=== PATIENT | female | born 1955 | race Hispanic/Latino ===

== ENCOUNTER 2017-08-16 19:26 | Emergency (ER) | payer MEDICARE, BC ==
[2017-08-16 19:31] VITALS: BP 151/85; PULSE 89; RESP 16; TEMP 98; O2SAT 98
--- NOTE | 2017-08-16 20:49 | ED PDOC ---
HPI: Psych/Substance Abuse Time Seen by Provider: 08/16/17 20:00 Chief Complaint (Nursing): Anxiety Chief Complaint (Provider): Depression History Per: Patient History/Exam Limitations: no limitations Onset/Duration Of Symptoms: Days Current Symptoms Are (Timing): Still Present Additional Complaint(s): 62 y/o female with a past medical history of hypertension who presents to the emergency department with a complaint of feeling depressed and sad since she had been off her medications x1 month. Reports she felt suicidal yesterday, , after he sons came over the house and started fighting. States she no longer feels suicidal. Denies homicidal ideation. Past Medical History Reviewed: Historical Data, Nursing Documentation, Vital Signs Vital Signs: Last Vital Signs Temp 98.0 F 08/16/17 19:28 Pulse 89 08/16/17 19:28 Resp 16 08/16/17 19:28 BP 151/85 H 08/16/17 19:28 Pulse Ox 98 08/16/17 19:28 - Medical History PMH: Anxiety, Depression, HTN Denies: Diabetes, Hepatitis, HIV, Chronic Kidney Disease, Seizures, Sexually Transmitted Disease - Surgical History Surgical History: Cholecystectomy - Family History Family History: States: Unknown Family Hx - Social History Current smoker - smoking cessation education provided: No Alcohol: None Drugs: Denies - Immunization History Hx Tetanus Toxoid Vaccination: No Hx Influenza Vaccination: No Hx Pneumococcal Vaccination: No - Home Medications Home Medications: Ambulatory Orders Medication Instructions Recorded Alprazolam [Xanax] 0.5 mg PO TID 02/27/16 Lisinopril [Zestril] 20 mg PO DAILY 02/27/16 Meloxicam [Mobic] 15 mg PO DAILY 02/27/16 Sertraline [Zoloft] 100 mg PO BID 02/27/16 Zolpidem [Ambien] 10 mg PO HS 02/27/16 traMADol [Ultram] 50 mg PO TID 02/27/16 - Allergies Allergies/Adverse Reactions: Allergies Allergy/AdvReac Type Severity Reaction Status Date / Time Penicillins Allergy RASH Verified 02/27/16 13:03 Review of Systems ROS Statement: Except As Marked, All Systems Reviewed And Found Negative (As per HPI, otherwise negative) Psych: Positive for: Depression, Suicidal ideation (Yesterday but had resolved since). Negative for: Other (Homicidal ideation) Physical Exam - Reviewed Nursing Documentation Reviewed: Yes Vital Signs Reviewed: Yes - Physical Exam Appears: Positive for: Non-toxic, No Acute Distress Head Exam: Positive for: ATRAUMATIC, NORMAL INSPECTION, NORMOCEPHALIC Skin: Positive for: Normal Color, Warm, Dry Cardiovascular/Chest: Positive for: Regular Rate, Rhythm. Negative for: Murmur Respiratory: Positive for: Normal Breath Sounds. Negative for: Accessory Muscle Use, Respiratory Distress Gastrointestinal/Abdominal: Positive for: Normal Exam, Soft. Negative for: Tenderness Neurologic/Psych: Positive for: Alert, Oriented (x3), Mood/Affect (Flat) - Laboratory Results Result Diagrams: 08/16/17 20:56 08/16/17 20:56 - ECG O2 Sat by Pulse Oximetry: 98 (RA) Pulse Ox Interpretation: Normal Medical Decision Making Medical Decision Making: Time: 2024 Initial Impression: Depression Initial Plan: --Acetaminophen --Alcohol Serum --BMP --Drug Screen, URINE --Salicylate --CBC w/ diff --Urinalysis --1:1 Observations for Suicide precaution --Reevaluation Time: 2055 --Urine Opiates: Positive (High) Time: 2219 --Crisis Evaluation As Ordered Time: 2254 --Patient is medically clear for psychiatric evaluation. 2311 Patient is deemed stable for discharge home as per Dr. Maldonado. Dx: depression Scribe~Attestation: Documented by Shayla Alberto, acting as a scribe for Esme lAvarenga MD. Provider Scribe~Attestation: All medical record entries made by the Scribe were at my direction and personally dictated by me. I have reviewed the chart and agree that the record accurately reflects my personal performance of the history, physical exam, medical decision making, and the department course for this patient. I have also personally directed, reviewed, and agree with the discharge instructions and disposition. Disposition - Clinical Impression Clinical Impression: Depression - Patient ED Disposition Is Patient to be Admitted: No Counseled Patient/Family Regarding: Diagnosis, Need For Followup - Disposition Disposition: Routine/Home Disposition Time: 23:00 Condition: IMPROVED Additional Instructions: follow up with your psychiatrist in 2 days return to the ED with any worsening or concerning symptoms Instructions: Depression (ED) Forms: [employer] (Maltese)
[2017-08-16 21:25] LABS: BASO % 0.6 % (0.0-2.0); EOS # 0.1 K/uL (0.0-0.7); EOS % 1.4 % (0.0-4.0); HEMATOCRIT 39.8 % (34.0-47.0); LYMPH # 1.9 K/uL (1.0-4.3); LYMPH % 39.3 % (20.0-40.0); MEAN CELL VOLUME 91.9 fl (81.0-99.0); MEAN CORPUSCULAR HEMOGLOBIN 29.3 pg (27.0-31.0); MEAN CORPUSCULAR HGB CONC 31.9 g/dL (33.0-37.0); MEAN PLATELET VOLUME 7.9 fl (7.2-11.7); MONO # 0.4 K/uL (0.0-0.8); MONO % 8.8 % (0.0-10.0); NEUT # 2.4 K/uL (1.8-7.0); NEUT % 49.9 % (50.0-75.0); NRBC % 0.2 % (0.0-0.0); WHITE BLOOD COUNT 4.9 K/uL (4.8-10.8)
[2017-08-16 21:31] LABS: ALCOHOL SERUM < 10 mg/dl (0-10); BLOOD UREA NITROGEN 19 mg/dl (7-17); CALCIUM 9.1 mg/dL (8.4-10.2); CARBON DIOXIDE 27 mmol/L (22-30); CHLORIDE 106 mmol/L (98-107); GFR AFRICAN-AMERICAN > 60; GLUCOSE,RANDOM 84 mg/dL (65-105); POTASSIUM 4.8 MMOL/L (3.6-5.0); SODIUM 140 mmol/l (132-148)
[2017-08-16 21:36] LABS: RBC URINE 3 /hpf (0-3); URINE BILIRUBIN NEGATIVE (NEGATIVE); URINE BLOOD NEGATIVE (NEGATIVE); URINE COLOR YELLOW (YELLOW); URINE GLUCOSE (UA) NEG (Normal); URINE KETONE NEGATIVE (NEGATIVE); URINE LEUKOCYTE ESTERASE SMALL Leu/uL (Negative); URINE PROTEIN 30 mg/dL (NEGATIVE); URINE UROBILINOGEN 0.2-1.0 mg/dL (0.2-1.0)
--- NOTE | 2017-08-17 09:51 | CARD ---
APPROVED REPORT EKG Measurement Heart [id number] <Conclusion> Normal sinus rhythm Normal ECG
== END 2017-08-16 23:35 | disposition home or self-care (01) ==
LOC: H.ER 19:26
DX: F32.9 Major depressive disorder, single episode, unspecified (principal); F41.9 Anxiety disorder, unspecified; I10 Essential (primary) hypertension; Z88.0 Allergy status to penicillin
CPT/HCPCS: 80048; 81003; 85025; 93005; 99282; G0480

== ENCOUNTER 2018-03-31 18:59 | Emergency (ER) | payer MEDICARE, BC ==
[2018-03-31] MEDS ORDERED: Lidocaine 1% Inj (20ml) IJ ONE (20:58)
--- NOTE | 2018-03-31 21:00 | ED PDOC ---
Upper Extremity Pain/Injury Time Seen by Provider: 03/31/18 20:45 Chief Complaint (Nursing): Upper Extremity Problem/Injury Chief Complaint (Provider): right arm pain/swelling History Per: Patient History/Exam Limitations: no limitations Onset/Duration Of Symptoms: Days (3) Current Symptoms Are (Timing): Still Present Additional Complaint(s): 62 y/o female presents for evaluation of pain/swelling to right forearm x 3 days. Patient states area looked like a small "pimple" when it started, has since grown in size and now redness surrounding it. Associated chills. Denies fever, nausea/vomiting, numbness/weakness right upper extremity, IVDA. Past Medical History Reviewed: Historical Data, Nursing Documentation, Vital Signs Vital Signs: Last Vital Signs Temp 99.7 F H 03/31/18 19:24 Pulse 82 03/31/18 19:24 Resp 16 03/31/18 19:24 BP 175/85 H 03/31/18 19:24 Pulse Ox 98 03/31/18 19:24 - Medical History PMH: Anxiety, Depression, HTN Denies: Diabetes, Hepatitis, HIV, Chronic Kidney Disease, Seizures, Sexually Transmitted Disease - Surgical History Surgical History: Cholecystectomy - Family History Family History: States: Unknown Family Hx - Living Arrangements Living Arrangements: With Family - Immunization History Hx Tetanus Toxoid Vaccination: No Hx Influenza Vaccination: No Hx Pneumococcal Vaccination: No - Home Medications Home Medications: Ambulatory Orders Medication Instructions Recorded Alprazolam [Xanax] 0.5 mg PO TID 02/27/16 Lisinopril [Zestril] 20 mg PO DAILY 02/27/16 Meloxicam [Mobic] 15 mg PO DAILY 02/27/16 Sertraline [Zoloft] 100 mg PO BID 02/27/16 Zolpidem [Ambien] 10 mg PO HS 02/27/16 traMADol [Ultram] 50 mg PO TID 02/27/16 Clindamycin [Cleocin] 300 mg PO QID #40 cap 03/31/18 Ibuprofen [Motrin Tab] 800 mg PO Q8 PRN #15 tab 03/31/18 - Allergies Allergies/Adverse Reactions: Allergies Allergy/AdvReac Type Severity Reaction Status Date / Time Penicillins Allergy RASH Verified 02/27/16 13:03 Review of Systems ROS Statement: Except As Marked, All Systems Reviewed And Found Negative Musculoskeletal: Positive for: Arm Pain Physical Exam - Reviewed Nursing Documentation Reviewed: Yes Vital Signs Reviewed: Yes - Physical Exam Appears: Positive for: Well, Non-toxic, No Acute Distress Head Exam: Positive for: ATRAUMATIC, NORMAL INSPECTION, NORMOCEPHALIC Skin: Positive for: Normal Color Cardiovascular/Chest: Positive for: Regular Rate, Rhythm Respiratory: Positive for: Normal Breath Sounds Pulses-Radial (L): 2+ Pulses-Radial (R): 2+ Extremity: Positive for: Normal ROM, Swelling (4cm fluctuant abscess to right dorsal forearm with moderate surrounding erythema. + drainage. ) Neurologic/Psych: Positive for: Alert, Oriented (x3). Negative for: Motor/ Sensory Deficits - Laboratory Results Result Diagrams: 03/31/18 21:43 03/31/18 21:43 - ECG O2 Sat by Pulse Oximetry: 98 - Progress ED Course And Treament: labs, wound culture, IV morphine, IV clindamycin Verbal consent given by patient for I&D procedure Area prepped with betadine, anesthetized with 1% lido with epi Incision made using #11 blade with + prurulent drainage. Area packed, telfa applied, cling applied Patient educated on findings, discharged with rx Clindamycin, Ibuprofen Advised warm compresses Follow up in 48 hours for packing removal Return precautions given Disposition - Clinical Impression Clinical Impression: Abscess of forearm, Cellulitis - Patient ED Disposition Is Patient to be Admitted: No Counseled Patient/Family Regarding: Studies Performed, Diagnosis, Need For Followup, Rx Given - Disposition Disposition: Routine/Home Disposition Time: 00:29 Condition: STABLE Additional Instructions: Follow up in 48 hours for packing removal Taking medication as directed Apply warm compresses to affected area Return to ED sooner for worsening/concerning symptoms. Prescriptions: Clindamycin [Cleocin] 300 mg PO QID #40 cap Ibuprofen [Motrin Tab] 800 mg PO Q8 PRN #15 tab PRN Reason: Pain, Moderate (4-7) Instructions: Cellulitis and Erysipelas (Skin Infections), Abscess Incision and Drainage Forms: [employer] (Maltese)
[2018-03-31] MEDS ORDERED: Morphine 4 MG/ML VIAL ONE (21:02)
[2018-03-31] MEDS ORDERED: Lidocaine Hydrochloride 0 ML INJ ONE (21:08)
[2018-03-31] MEDS ORDERED: Lidocaine/Epi 1% 1:100000 20 ML IJ ONE (21:10)
[2018-03-31] MEDS ORDERED: Lidocaine 1% w Epi 1:100,000 Inj ONE (21:10)
[2018-03-31 21:47] LABS: BASO % 0.2 % (0.0-2.0); EOS % 0.2 % (0.0-4.0); HEMOGLOBIN 12.9 g/dL (12.0-16.0); LYMPH # 1.2 K/uL (1.0-4.3); LYMPH % 10.2 % (20.0-40.0); MEAN CELL VOLUME 88.3 fl (81.0-99.0); MEAN CORPUSCULAR HEMOGLOBIN 29.9 pg (27.0-31.0); MEAN CORPUSCULAR HGB CONC 33.8 g/dL (33.0-37.0); MEAN PLATELET VOLUME 7.6 fl (7.2-11.7); MONO # 0.9 K/uL (0.0-0.8); MONO % 7.4 % (0.0-10.0); NEUT # 9.8 K/uL (1.8-7.0); NRBC % 0.1 % (0.0-0.0); RBC 4.33 Mil/uL (3.80-5.20); RED CELL DISTRIBUTION WIDTH 13.3 % (11.5-14.5); WHITE BLOOD COUNT 11.9 K/uL (4.8-10.8)
[2018-03-31 22:14] LABS: ALB/GLOB RATIO 1.1 (1.0-2.1); ALBUMIN 4.2 g/dL (3.5-5.0); ALT/SGPT 37 U/L (9-52); AST/SGOT 35 U/L (14-36); BLOOD UREA NITROGEN 16 mg/dl (7-17); GFR AFRICAN-AMERICAN > 60; GFR NON-AFRICAN AMERICAN > 60
[2018-04-01 00:15] VITALS: PULSE 92; TEMP 99.6
[2018-04-01 00:55] VITALS: BP 156/73; RESP 18; O2SAT 99
== END 2018-04-01 00:55 | disposition home or self-care (01) ==
LOC: H.ER 18:59
DX: L02.414 Cutaneous abscess of left upper limb (principal); Z88.0 Allergy status to penicillin; I10 Essential (primary) hypertension
CPT/HCPCS: 10060; 80053; 83605; 85025; 87040; 87070; 87181; 96365; 96375; 96376; 99284; J2270

== ENCOUNTER 2018-04-03 18:12 | Emergency (ER) | payer MEDICARE, BC ==
[2018-04-03 18:44] VITALS: O2SAT 98
--- NOTE | 2018-04-03 19:42 | ED PDOC ---
HPI: Wound Care - HPI Time Seen by Provider: 04/03/18 19:02 Chief Complaint (Nursing): Wound Check Chief Complaint (Provider): RIGHT arm wound check Additional Complaint(s): I&D performed on RIGHT forearm [address] on clindamycin Reports improvement of swelling and size of wound Denies fever/chills Past Medical History Reviewed: Historical Data, Vital Signs Vital Signs: Last Vital Signs Temp 99.4 F 04/03/18 18:41 Pulse 74 04/03/18 18:41 Resp 18 04/03/18 18:41 BP 148/75 04/03/18 18:41 Pulse Ox 98 04/03/18 18:41 - Medical History PMH: Anxiety, Depression, HTN Denies: Diabetes, Hepatitis, HIV, Chronic Kidney Disease, Seizures, Sexually Transmitted Disease - Surgical History Surgical History: Cholecystectomy - Family History Family History: States: Unknown Family Hx - Immunization History Hx Tetanus Toxoid Vaccination: No Hx Influenza Vaccination: No Hx Pneumococcal Vaccination: No - Home Medications Home Medications: Ambulatory Orders Medication Instructions Recorded Alprazolam [Xanax] 0.5 mg PO TID 02/27/16 Lisinopril [Zestril] 20 mg PO DAILY 02/27/16 Meloxicam [Mobic] 15 mg PO DAILY 02/27/16 Sertraline [Zoloft] 100 mg PO BID 02/27/16 Zolpidem [Ambien] 10 mg PO HS 02/27/16 traMADol [Ultram] 50 mg PO TID 02/27/16 Clindamycin [Cleocin] 300 mg PO QID #40 cap 03/31/18 Ibuprofen [Motrin Tab] 800 mg PO Q8 PRN #15 tab 03/31/18 - Allergies Allergies/Adverse Reactions: Allergies Allergy/AdvReac Type Severity Reaction Status Date / Time Penicillins Allergy RASH Verified 02/27/16 13:03 Review of Systems Constitutional: Negative for: Fever, Chills Musculoskeletal: Positive for: Arm Pain Skin: Positive for: Lesions Neurological: Negative for: Weakness, Numbness Physical Exam - Reviewed Nursing Documentation Reviewed: Yes Vital Signs Reviewed: Yes - Physical Exam Appears: Positive for: Non-toxic, No Acute Distress Head Exam: Positive for: ATRAUMATIC, NORMOCEPHALIC Comments: RIGHT dorsal forearm: circular 5mm open lesions with gauze drain in wound and purulent discharge. Mild surrounding erythema and induration and tenderness to palpation. FROM, light touch intact, <2 sec CR RIGHT hand. - ECG O2 Sat by Pulse Oximetry: 98 - Progress ED Course And Treament: Drain removed. Reviewed microbiology for cultures. Staph aureus sensitive to clindamycin. Disposition - Clinical Impression Clinical Impression: Encounter for wound re-check Counseled Patient/Family Regarding: Studies Performed, Diagnosis - Disposition Disposition: Routine/Home Disposition Time: 19:42 Condition: STABLE Additional Instructions: RETURN TO ER IN 48 HOURS FOR ANOTHER WOUND CHECK WARM COMPRESSES OR WARM SOAPY SOAKS 10 MINUTES AT A TIME 3 TIMES A DAY TO CONTINUE DRAINAGE. COMPLETE FULL COURSE OF ANTIBIOTICS. Instructions: Abscess Incision and Drainage
[2018-04-03 20:05] VITALS: BP 129/80; PULSE 68; RESP 16; TEMP 99
== END 2018-04-03 20:20 | disposition home or self-care (01) ==
LOC: H.ER 18:12
DX: Z48.00 Encounter for change or removal of nonsurgical wound dressing (principal); Z88.0 Allergy status to penicillin; I10 Essential (primary) hypertension